=== PATIENT | male | born 1955 | race African-American/Black ===

== ENCOUNTER 2020-06-22 09:07 | Inpatient (IN) | payer MEDICARE, OTHER ==
--- NOTE | 2020-06-22 11:49 | BHS.RME ---
Substance Use & Tx History - Substance Use History Alcohol Substance amount: 1 and half pints of vodka Frequency of use: Daily Substance route: Oral Date of Last Use: 06/22/20 - Last Treatment Date of last treatment: in 2013 [facility] Where was last treatment: Detox Physical/Psych/Mental Status - Behavior Eye Contact: Normal - Cooperativeness Cooperativeness: Cooperative - Thinking Thought Processes: Logical Thought content: Future oriented - Physical Health Problems Is patient presently having any pain?: No Does patient presently have any injuries (include location): No Does patient currently have a fever: No CIWA Nausea/Vomitin Muscle Tremors: 3 Anxiety: 3 Agitation: 3 Paroxysmal Sweats: 1-Minimal Palms Moist Orientation: 0-Oriented Tacttile Disturbances: 1-Very Mild Itch/Numbness Auditory Disturbances: 0-None Visual Disturbances: 0-None Headache: 2-Mild CIWA-Ar Total Score: 16
--- NOTE | 2020-06-22 12:07 | HP ---
CIWA Score Nausea/Vomitin Muscle Tremors: 3 Anxiety: 3 Agitation: 3 Paroxysmal Sweats: 1-Minimal Palms Moist Orientation: 0-Oriented Tacttile Disturbances: 1-Very Mild Itch/Numbness Auditory Disturbances: 0-None Visual Disturbances: 0-None Headache: 2-Mild CIWA-Ar Total Score: 16 - Admission Criteria OASAS Guidelines: Admission for Medically Managed Detox: Requires at least one of the followin. CIWA greater than 12 2. Seizures within the past 24 hours 3. Delirium tremens within the past 24 hours 4. Hallucinations within the past 24 hours 5. Acute intervention needed for co occurring medical disorder 6. Acute intervention needed for co occurring psychiatric disorder 7. Severe withdrawal that cannot be handled at a lower level of care (continued vomiting, continued diarrhea, abnormal vital signs) requiring intravenous medication and/or fluids 8. Admitting History and Physical - Admission Chief Complaint: i need hlep to stop drinking alcohol History of Present Illness: this 65 years old male with alcohol dependence,seeking detox ,first time to this facility last detox in 2013 [facility] living with friends retied,no legal issue nicotine dependence 1pack/day htn,dm on diet control longest sobriety 1 year may go to rehab after detox right inguinoscrotal hernia for 7 years last seen in [place] History Source: Patient Limitations to Obtaining History: No Limitations - Past Medical History Cardiovascular: Yes: HTN Endocrine: Yes: Diabetes Mellitus - Past Surgical History Past Surgical History: Yes: None - Smoking History Smoking history: Current every day smoker Have you smoked in the past 12 months: Yes Aproximately how many cigarettes per day: 20 - Alcohol/Substance Use Hx Alcohol Use: No Date of Last Use: 06/22/20 - Social History Usual Living Arrangement: Yes: Other (with friend) Do you think of yourself as: Straight/Heterosexual Occupation: retired History of Recent Travel: No Other Social History: retired,nicotine dependence,denied legal issue Admission ROS BHS - HPI Chief Complaint: i need help to stop drinking alcohol Allergies/Adverse Reactions: Allergies Allergy/AdvReac Type Severity Reaction Status Date / Time No Known Allergies Allergy Verified 06/22/20 12:32 History of Present Illness: this 65 years old male with alcohol dependence seeking detox,withdrawal symptom,first time to this facility had seizure last 2013,denied syncope last detox [facility] in 2013 hypertension ,type 2 dm on diet control right inguino scrotal hernia for 7 years longest sobriety 1 year 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 patient also on suboxone8 mgs/2 mgs film tid i stop showed last filled on 06/20/2020 got 90 films for 30 days - Ebola screening Have you traveled outside of the country in the last 21 days: No Have you had contact with anyone from an Ebola affected area: No Have you been sick,other than usual withdrawal symptoms: No Do you have a fever: No - Review of Systems Constitutional: Malaise, Night Sweats, Changes in sleep EENT: reports: Nose Congestion Respiratory: reports: No Symptoms reported Cardiac: reports: No Symptoms Reported GI: reports: Nausea, Poor Appetite, Vomiting, Abdominal cramping : reports: No Symptoms Reported Musculoskeletal: reports: Back Pain, Joint Pain, Muscle Pain Integumentary: reports: Dryness Neuro: reports: Headache, Tremors Endocrine: reports: No Symptoms Reported Hematology: reports: No Symptoms Reported Psychiatric: reports: No Sypmtoms Reported, Judgement Intact, Mood/Affect Appropiate, Orientated x3, Agitated Other Systems: Reviewed and Negative Patient History - Patient Medical History Hx Anemia: No Hx Asthma: No Hx Chronic Obstructive Pulmonary Disease (COPD): No Hx Cancer: No Hx Cardiac Disorders: No Hx Congestive Heart Failure: No Hx Hypertension: Yes (no med diet control) Hx Hypercholesterolemia: No Hx Pacemaker: No HX Cerebrovascular Accident: No Hx Seizures: No Hx Dementia: No Hx Diabetes: Yes (no med diet control) Hx Gastrointestinal Disorders: No Hx Liver Disease: No Hx Genitourinary Disorders: No Hx Sexually Transmitted Disorders: No Hx Renal Disease (ESRD): No Hx Thyroid Disease: No Hx Human Immunodeficiency Virus (HIV): No (last 2018) Hx Hepatitis C: No Hx Depression: No Hx Suicide Attempt: No Hx Bipolar Disorder: No Hx Schizophrenia: No Other Medical History: right inguino scrotal hernia,no suicidal,no homicidal - Patient Surgical History Past Surgical History: No - PPD History Previous Implant?: Yes Documented Results: Negative w/o proof Implanted On Prior [facility] Admission?: No PPD to be Administered?: Yes - Smoking Cessation Smoking history: Current every day smoker Have you smoked in the past 12 months: Yes Aproximately how many cigarettes per day: 20 Cigars Per Day: 0 Hx Chewing Tobacco Use: No Initiated information on smoking cessation: Yes 'Breaking Loose' booklet given: 06/22/20 - Substance & Tx. History Hx Alcohol Use: Yes Hx Substance Use: No Substance Use Type: Alcohol Hx Substance Use Treatment: Yes (2013 [facility]) - Substances abused Alcohol Substance route: Oral Frequency: Daily Amount used: 1 and half pints of vodka Age of first use: 54 Date of last use: 06/22/20 Admission Physical Exam [facility] - Vital Signs Vital Signs: bp 144/82,p76,r18,t97.2,maurice 0.057,pulse ox 100% - Physical General Appearance: Yes: Moderate Distress, Tremorous, Irritable, Sweating, Anxious HEENTM: Yes: Normal ENT Inspection, SYDNI, Pharynx Normal Respiratory: Yes: Within Normal Limits, Lungs Clear, Normal Breath Sounds Neck: Yes: Within Normal Limits, Supple, Trachea in good position Breast: Yes: Within Normal Limits Cardiology: Yes: Within Normal Limits, Regular Rhythm, Regular Rate, S1, S2 Abdominal: Yes: Within Normal Limits, Normal Bowel Sounds, Non Tender, Flat, Soft, Other Genitourinary: Yes: Within Normal Limits Back: Yes: Muscle Spasm Musculoskeletal: Yes: Back pain, Muscle Pain Extremities: Yes: Tremors Neurological: Yes: center director II-XII NML intact, Fully Oriented, Alert, Motor Strength 5/5 Lymphatic: Yes: Within Normal Limits - Diagnostic (1) Alcohol dependence with uncomplicated withdrawal Current Visit: Yes Status: Acute (2) Seizure Current Visit: Yes Status: Acute (3) Right inguinal hernia Current Visit: Yes Status: Acute (4) Nicotine dependence Current Visit: Yes Status: Acute (5) Encounter for monitoring Suboxone maintenance therapy Current Visit: Yes Status: Acute Cleared for Admission [facility] - Detox or Rehab [facility] Level of Care: Medically Managed Detox Regimen/Protocol: Librium Inpatient Rehab Admission - Rehab Decision to Admit Inpatient rehab admission?: No
[2020-06-22] MEDS ORDERED: NICOTINE POLACRILEX 2 MG GUM BUC PRN (12:57)
[2020-06-22] MEDS ORDERED: BISMUTH SUBSALICYLATE 524 MG/30 ML UD PO PRN (12:57)
[2020-06-22] MEDS ORDERED: MAG HYDROX/AL HYDROX/SIMETH 30 ML UNIT-DOSE CUP PO PRN (12:57)
[2020-06-22] MEDS ORDERED: chlordiazePOXIDE HCL 25 MG CAPSULE PO PRN (12:57)
[2020-06-22] MEDS ORDERED: ACETAMINOPHEN 325 MG TABLET (FP) PO PRN ×2 (12:57)
[2020-06-22] MEDS ORDERED: MAGNESIUM CITRATE 300 ML BOTTLE PO PRN (12:57)
[2020-06-22] MEDS ORDERED: MENTHOL/PHENOL 1 EACH UD MM PRN (12:57)
[2020-06-22] MEDS ORDERED: MAGNESIUM HYDROX 2400MG/30ML ORAL SUSPENSION 30 ML CUP PO PRN (12:57)
[2020-06-22] MEDS ORDERED: ONDANSETRON *ODT* 4 MG TABLET SL PRN (12:57)
[2020-06-22 13:14] VITALS: BMI 24.8
[2020-06-22] MEDS: NICOTINE 21 MG/24 HOURS TOPICAL PATCH TD SCH (14:50)
[2020-06-22] MEDS: hydrOXYzine PAMOATE 25 MG CAPSULE (FP) PO SCH ×3 (14:50→23:03)
[2020-06-22] MEDS: BUPRENORPHINE/NALOXONE 8 MG/2 MG FILM PACKET SL SCH ×2 (14:50→23:02)
[2020-06-22] MEDS: chlordiazePOXIDE HCL 25 MG CAPSULE PO SCH ×2 (18:34→23:02)
[2020-06-22] MEDS: THIAMINE HCL 100 MG TABLET (FP) PO SCH (23:02)
[2020-06-22] MEDS: MELATONIN 5 MG TABLETS PO SCH (23:03)
[2020-06-23] MEDS: BUPRENORPHINE/NALOXONE 8 MG/2 MG FILM PACKET SL SCH ×3 (05:27→22:47)
[2020-06-23] MEDS: chlordiazePOXIDE HCL 25 MG CAPSULE PO SCH ×4 (05:27→22:47)
[2020-06-23] MEDS: hydrOXYzine PAMOATE 25 MG CAPSULE (FP) PO SCH ×5 (05:28→22:47)
[2020-06-23] MEDS: sitaGLIPtin PHOSPHATE 50 MG TABLET PO SCH ×2 (06:41→08:53)
[2020-06-23] MEDS: ASPIRIN 81 MG CHEWABLE TABLETS PO SCH (10:33)
[2020-06-23] MEDS: TAMSULOSIN HCL 0.4 MG CAP PO SCH (10:33)
[2020-06-23] MEDS: PRENATAL VITAMINS W/ FOLIC ACID TABLET (FP) PO SCH (10:34)
[2020-06-23] MEDS: LOSARTAN POTASSIUM 25 MG TABLET PO SCH (10:34)
[2020-06-23] MEDS: NICOTINE 21 MG/24 HOURS TOPICAL PATCH TD SCH (10:34)
--- NOTE | 2020-06-23 10:50 | PN ---
S CIWA - CIWA Score Nausea/Vomitin-Mild Nausea/No Vomiting Muscle Tremors: 4-Moderate,w/Arms Extend Anxiety: 3 Agitation: 1-Slight > Activity Paroxysmal Sweats: No Perspiration Orientation: 0-Oriented Tacttile Disturbances: 0-None Auditory Disturbances: 0-None Visual Disturbances: 1-Very Mild Sensitivity Headache: 2-Mild CIWA-Ar Total Score: 12 BHS Progress Note (SOAP) Subjective: 65 years old male was admitted on 06/22/20 for alcohol withdrawal sx management treating with librium detox regiment feels tired ate breakfast in room prefers to resting today limited conversation with staff Objective: 06/23/20 10:49 Vital Signs - 24 hr 06/22/20 06/22/20 06/22/20 13:07 14:23 16:03 Temperature 97.2 F L 96.9 F L Pulse Rate 76 82 76 Respiratory 18 18 18 Rate Blood Pressure 144/82 174/82 H 171/92 H O2 Sat by Pulse 100 Oximetry (%) 06/22/20 06/22/20 06/23/20 16:55 20:32 06:14 Temperature 97.3 F L 97.1 F L 97.8 F Pulse Rate 69 69 60 Respiratory 18 17 18 Rate Blood Pressure 168/94 132/86 145/88 O2 Sat by Pulse 95 100 Oximetry (%) 06/23/20 09:06 Temperature 97.7 F Pulse Rate 80 Respiratory 18 Rate Blood Pressure 98/67 O2 Sat by Pulse Oximetry (%) Laboratory Tests 06/22/20 06/23/20 13:10 05:29 POC Glucometer 102 COVID-19 ([facility]) Not detected 06/23/20 10:50 lab pending Assessment: 06/23/20 10:50 alcohol withdrawal Plan: librium regiment
[2020-06-23 10:59] LABS: HEMOGLOBIN 12.3 GM/dL (11.7-16.9); MCHC 32.3 g/dl (32.0-35.9); MEAN CELL VOLUME 105.2 fl (80-96); MEAN PLT VOLUME 10.9 fl (7.5-11.1); PLATELET COUNT 80 K/MM3 (134-434); RBC 3.61 M/mm3 (4.00-5.60); RDW 15.3 % (11.9-15.9); WHITE BLOOD COUNT 3.6 K/mm3 (4.0-10.0)
[2020-06-23 11:16] LABS: POTASSIUM 4.2 mmol/L (3.5-5.1)
[2020-06-23 11:25] LABS: ALBUMIN 2.9 g/dl (3.4-5.0); BILIRUBIN,TOTAL 1.4 mg/dL (0.2-1); BLOOD UREA NITROGEN 13.5 mg/dL (7-18); CALCIUM 8.7 mg/dL (8.5-10.1); TOT PROT 6.2 g/dl (6.4-8.2)
--- NOTE | 2020-06-23 11:44 | EKG ---
Test Reason : Blood Pressure : / mmHG Vent. Rate : 087 BPM Atrial Rate : 087 BPM P-R Int : 200 ms QRS Dur : 096 ms QT Int : 372 ms P-R-T Axes : 049 047 044 degrees QTc Int : 447 ms NORMAL SINUS RHYTHM MINIMAL VOLTAGE CRITERIA FOR LVH, MAY BE NORMAL VARIANT BORDERLINE ECG NO PREVIOUS ECGS AVAILABLE Confirmed by CHRISSIE MARTINEZ MD ([id number]) on 06/23/2020 11:43:17 AM Referred By: Confirmed By:CHRISSIE MARTINEZ MD
[2020-06-23] MEDS: IBUPROFEN 400 MG TABLET (FP) PO PRN (18:30)
[2020-06-23] MEDS: MELATONIN 5 MG TABLETS PO SCH (22:47)
[2020-06-23] MEDS: THIAMINE HCL 100 MG TABLET (FP) PO SCH (22:47)
[2020-06-24] MEDS: hydrOXYzine PAMOATE 25 MG CAPSULE (FP) PO SCH ×5 (05:43→23:01)
[2020-06-24] MEDS: chlordiazePOXIDE HCL 25 MG CAPSULE PO SCH ×2 (05:43→10:31)
[2020-06-24] MEDS: BUPRENORPHINE/NALOXONE 8 MG/2 MG FILM PACKET SL SCH ×3 (05:43→23:01)
[2020-06-24] MEDS: sitaGLIPtin PHOSPHATE 50 MG TABLET PO SCH (07:57)
[2020-06-24] MEDS: ASPIRIN 81 MG CHEWABLE TABLETS PO SCH (10:30)
[2020-06-24] MEDS: TAMSULOSIN HCL 0.4 MG CAP PO SCH (10:30)
[2020-06-24] MEDS: PRENATAL VITAMINS W/ FOLIC ACID TABLET (FP) PO SCH (10:31)
[2020-06-24] MEDS: LOSARTAN POTASSIUM 25 MG TABLET PO SCH (10:31)
[2020-06-24] MEDS: NICOTINE 21 MG/24 HOURS TOPICAL PATCH TD SCH (10:31)
--- NOTE | 2020-06-24 10:58 | PN ---
[facility] CIWA - CIWA Score Nausea/Vomitin-Mild Nausea/No Vomiting Muscle Tremors: 2 Anxiety: 2 Agitation: 1-Slight > Activity Paroxysmal Sweats: No Perspiration Orientation: 0-Oriented Tacttile Disturbances: 0-None Auditory Disturbances: 0-None Visual Disturbances: 2-Mild Sensitivity Headache: 1-Very Mild CIWA-Ar Total Score: 9 S Progress Note (SOAP) Subjective: 65 years old male was admitted on 06/21/20 for alcohol withdrawal sx management treating with librium detox regiment ambulating with cane slow steady taking suboxone 8-2mg sl tid taking sitagliptin 50mg po daily for none insulin dependent diabetes Objective: 06/24/20 11:10 Vital Signs - 24 hr 06/23/20 06/23/20 06/23/20 12:45 16:36 20:09 Temperature 97.8 F 96.9 F L 97.1 F L Pulse Rate 82 85 90 Respiratory 18 18 18 Rate Blood Pressure 90/60 105/66 110/72 O2 Sat by Pulse 97 99 Oximetry (%) 06/24/20 06/24/20 05:58 08:32 Temperature 97.1 F L 97.1 F L Pulse Rate 90 84 Respiratory 18 16 Rate Blood Pressure 113/63 110/65 O2 Sat by Pulse 100 Oximetry (%) Laboratory Tests 06/22/20 06/23/20 06/23/20 13:10 05:29 07:40 WBC RBC Hgb Hct MCV MCH MCHC RDW Plt Count MPV Sodium Potassium Chloride Carbon Dioxide Anion Gap BUN Creatinine Est GFR (CKD-EPI)AfAm Est GFR (CKD-EPI)NonAf POC Glucometer 102 Random Glucose Calcium Total Bilirubin AST ALT Alkaline Phosphatase Total Protein Albumin Syphilis Serology Non-reactive COVID-19 ([facility]) Not detected HIV Ag/Ab Combo Qual 06/23/20 06/23/20 06/23/20 07:40 07:40 08:00 WBC 3.6 L RBC 3.61 L Hgb 12.3 Hct 38.0 MCV 105.2 H MCH 34.0 H MCHC 32.3 RDW 15.3 Plt Count 80 L MPV 10.9 Sodium 137 Potassium 4.2 Chloride 101 Carbon Dioxide 34 H Anion Gap 3 L BUN 13.5 Creatinine 1.0 Est GFR (CKD-EPI)AfAm 90.50 Est GFR (CKD-EPI)NonAf 78.08 POC Glucometer Random Glucose 103 Calcium 8.7 Total Bilirubin 1.4 H AST 130 H ALT 104 H Alkaline Phosphatase 146 H Total Protein 6.2 L Albumin 2.9 L Syphilis Serology COVID-19 ([facility]) HIV Ag/Ab Combo Qual Negative 06/24/20 05:43 WBC RBC Hgb Hct MCV MCH MCHC RDW Plt Count MPV Sodium Potassium Chloride Carbon Dioxide Anion Gap BUN Creatinine Est GFR (CKD-EPI)AfAm Est GFR (CKD-EPI)NonAf POC Glucometer 92 Random Glucose Calcium Total Bilirubin AST ALT Alkaline Phosphatase Total Protein Albumin Syphilis Serology COVID-19 ([facility]) HIV Ag/Ab Combo Qual 06/24/20 11:12 ast elevation discontinue tylenal discontinue librium begin ativan detox regiment 06/24/20 11:16 repeat ast 06/26/20 Assessment: 06/24/20 11:16 alcohol withdrawal Plan: ativan regiment
[2020-06-24 11:13] LABS: EPI CELLS 5 /uL (0-25.1); HYALINE CASTS 7 /uL (0-3.1); URINE APPEARANCE CLOUDY; URINE BACTERIA >9,000 /uL (0-1359); URINE BILIRUBIN 1+ (NEGATIVE); URINE COLOR DK YELLOW; URINE GLUCOSE (UA) NEGATIVE (NEGATIVE); URINE KETONE TRACE (NEGATIVE); URINE LEUK ESTERASE 2+ (NEGATIVE); URINE NITRITE POSITIVE (NEGATIVE); URINE PROTEIN TRACE (NEGATIVE); URINE RBC 20 /uL (0-23.9); URINE WBC 248 /uL (0-25.8)
[2020-06-24] MEDS ORDERED: LORazepam 1 MG TABLET PO PRN (11:13)
[2020-06-24 11:50] LABS: URINE CRYSTALS PRESENT /hpf
[2020-06-24] MEDS: LORazepam 2 MG TABLET PO SCH ×2 (18:14→23:02)
[2020-06-24] MEDS: MELATONIN 5 MG TABLETS PO SCH (23:01)
[2020-06-24] MEDS: THIAMINE HCL 100 MG TABLET (FP) PO SCH (23:01)
[2020-06-25] MEDS ORDERED: chlordiazePOXIDE HCL 10 MG CAPSULE PO PRN
[2020-06-25] MEDS ORDERED: chlordiazePOXIDE HCL 10 MG CAPSULE PO SCH (05:00)
[2020-06-25] MEDS: hydrOXYzine PAMOATE 25 MG CAPSULE (FP) PO SCH ×2 (07:46→10:23)
[2020-06-25] MEDS: BUPRENORPHINE/NALOXONE 8 MG/2 MG FILM PACKET SL SCH ×3 (07:46→22:35)
[2020-06-25] MEDS: LORazepam 1 MG TABLET PO SCH ×4 (07:46→22:35)
[2020-06-25] MEDS: sitaGLIPtin PHOSPHATE 50 MG TABLET PO SCH (07:49)
[2020-06-25] MEDS: PRENATAL VITAMINS W/ FOLIC ACID TABLET (FP) PO SCH (10:23)
[2020-06-25] MEDS: ASPIRIN 81 MG CHEWABLE TABLETS PO SCH (10:23)
[2020-06-25] MEDS: NICOTINE 21 MG/24 HOURS TOPICAL PATCH TD SCH (10:24)
[2020-06-25] MEDS: LOSARTAN POTASSIUM 25 MG TABLET PO SCH (10:24)
[2020-06-25] MEDS: TAMSULOSIN HCL 0.4 MG CAP PO SCH (10:24)
--- NOTE | 2020-06-25 11:50 | PN ---
S CIWA - CIWA Score Nausea/Vomitin-No Nausea/No Vomiting Muscle Tremors: 1-None Visible, but [place] Anxiety: 1-Mildly Anxious Agitation: 0-Normal Activity Paroxysmal Sweats: No Perspiration Orientation: 0-Oriented Tacttile Disturbances: 1-Very Mild Itch/Numbness Auditory Disturbances: 0-None Visual Disturbances: 0-None Headache: 0-None Present CIWA-Ar Total Score: 3 BHS Progress Note (SOAP) Subjective: 65 years old male was admitted on 06/21/20 for alcohol withdrawal sx management treating with ativan detox regiment mr singh was taking about his who 6 years ago and life has be hard without his partner for "many years" mr singh denies suicidal ideation no homocidal ideation encourage ventilate feelings and concerns Objective: 06/25/20 11:48 Vital Signs - 24 hr 06/24/20 06/24/20 06/24/20 12:31 16:34 21:13 Temperature 97.1 F L 96.9 F L 97.3 F L Pulse Rate 96 H 88 67 Respiratory 18 16 18 Rate Blood Pressure 98/61 101/67 148/83 O2 Sat by Pulse 98 98 95 Oximetry (%) 06/25/20 06/25/20 06:28 08:36 Temperature 97.0 F L 97.7 F Pulse Rate 83 108 H Respiratory 18 18 Rate Blood Pressure 109/54 L 98/67 O2 Sat by Pulse 99 Oximetry (%) Laboratory Tests 06/22/20 06/23/20 06/23/20 13:10 05:29 07:40 WBC RBC Hgb Hct MCV MCH MCHC RDW Plt Count MPV Sodium Potassium Chloride Carbon Dioxide Anion Gap BUN Creatinine Est GFR (CKD-EPI)AfAm Est GFR (CKD-EPI)NonAf POC Glucometer 102 Random Glucose Calcium Total Bilirubin AST ALT Alkaline Phosphatase Total Protein Albumin Urine Color Urine Appearance Urine pH Ur Specific [place] Urine Protein Urine Glucose (UA) Urine Ketones Urine Blood Urine Nitrite Urine Bilirubin Urine Urobilinogen Ur Leukocyte Esterase Urine WBC (Auto) Urine RBC (Auto) Urine Casts (Auto) U Epithel Cells (Auto) Urine Crystals (Auto) Urine Bacteria (Auto) Syphilis Serology Non-reactive COVID-19 ([facility]) Not detected HIV Ag/Ab Combo Qual 06/23/20 06/23/20 06/23/20 07:40 07:40 08:00 WBC 3.6 L RBC 3.61 L Hgb 12.3 Hct 38.0 MCV 105.2 H MCH 34.0 H MCHC 32.3 RDW 15.3 Plt Count 80 L MPV 10.9 Sodium 137 Potassium 4.2 Chloride 101 Carbon Dioxide 34 H Anion Gap 3 L BUN 13.5 Creatinine 1.0 Est GFR (CKD-EPI)AfAm 90.50 Est GFR (CKD-EPI)NonAf 78.08 POC Glucometer Random Glucose 103 Calcium 8.7 Total Bilirubin 1.4 H AST 130 H ALT 104 H Alkaline Phosphatase 146 H Total Protein 6.2 L Albumin 2.9 L Urine Color Urine Appearance Urine pH Ur Specific [place] Urine Protein Urine Glucose (UA) Urine Ketones Urine Blood Urine Nitrite Urine Bilirubin Urine Urobilinogen Ur Leukocyte Esterase Urine WBC (Auto) Urine RBC (Auto) Urine Casts (Auto) U Epithel Cells (Auto) Urine Crystals (Auto) Urine Bacteria (Auto) Syphilis Serology COVID-19 ([facility]) HIV Ag/Ab Combo Qual Negative 06/24/20 06/24/20 06/24/20 05:43 08:00 16:39 WBC RBC Hgb Hct MCV MCH MCHC RDW Plt Count MPV Sodium Potassium Chloride Carbon Dioxide Anion Gap BUN Creatinine Est GFR (CKD-EPI)AfAm Est GFR (CKD-EPI)NonAf POC Glucometer 92 133 Random Glucose Calcium Total Bilirubin AST ALT Alkaline Phosphatase Total Protein Albumin Urine Color Dk yellow Urine Appearance Cloudy Urine pH 5.0 Ur Specific [place] 1.029 Urine Protein Trace Urine Glucose (UA) Negative Urine Ketones Trace H Urine Blood 2+ H Urine Nitrite Positive H Urine Bilirubin 1+ H Urine Urobilinogen 1.0 Ur Leukocyte Esterase 2+ H Urine WBC (Auto) 248 Urine RBC (Auto) 20 Urine Casts (Auto) 7 U Epithel Cells (Auto) 5 Urine Crystals (Auto) Present Urine Bacteria (Auto) >9,000 Syphilis Serology COVID-19 ([facility]) HIV Ag/Ab Combo Qual 06/25/20 07:48 WBC RBC Hgb Hct MCV MCH MCHC RDW Plt Count MPV Sodium Potassium Chloride Carbon Dioxide Anion Gap BUN Creatinine Est GFR (CKD-EPI)AfAm Est GFR (CKD-EPI)NonAf POC Glucometer 137 Random Glucose Calcium Total Bilirubin AST ALT Alkaline Phosphatase Total Protein Albumin Urine Color Urine Appearance Urine pH Ur Specific [place] Urine Protein Urine Glucose (UA) Urine Ketones Urine Blood Urine Nitrite Urine Bilirubin Urine Urobilinogen Ur Leukocyte Esterase Urine WBC (Auto) Urine RBC (Auto) Urine Casts (Auto) U Epithel Cells (Auto) Urine Crystals (Auto) Urine Bacteria (Auto) Syphilis Serology COVID-19 ([facility]) HIV Ag/Ab Combo Qual low bp set parameter for losartan administer ast elevation continue ativan regiment uti begin bactrim ds bid x 5 days Assessment: 06/25/20 11:54 alcohol withdrawal uncomplicated uti Plan: ativan regiment bactrim ds bid x 5 days
[2020-06-25] MEDS ORDERED: SULFAMETHOXAZOLE/TRIMETHOPRIM 800MG/160MG D.S. TABLET PO SCH (12:00)
[2020-06-25] MEDS: AMOXICILLIN 500 MG CAPSULE (FP) PO SCH ×2 (15:37→22:35)
[2020-06-25] MEDS: METHOCARBAMOL 500 MG TABLET PO PRN (17:46)
[2020-06-25] MEDS: THIAMINE HCL 100 MG TABLET (FP) PO SCH (22:35)
[2020-06-25] MEDS: MELATONIN 5 MG TABLETS PO SCH (22:35)
[2020-06-26] MEDS ORDERED: LORazepam 0.5 MG TABLET PO PRN
[2020-06-26] MEDS ORDERED: chlordiazePOXIDE HCL 10 MG CAPSULE PO SCH (05:00)
[2020-06-26] MEDS: AMOXICILLIN 500 MG CAPSULE (FP) PO SCH ×3 (05:33→23:01)
[2020-06-26] MEDS: LORazepam 0.5 MG TABLET PO SCH ×4 (05:33→23:02)
[2020-06-26] MEDS: BUPRENORPHINE/NALOXONE 8 MG/2 MG FILM PACKET SL SCH ×3 (05:33→23:01)
[2020-06-26] MEDS: IBUPROFEN 400 MG TABLET (FP) PO PRN (05:35)
[2020-06-26] MEDS: sitaGLIPtin PHOSPHATE 50 MG TABLET PO SCH (07:08)
--- NOTE | 2020-06-26 10:00 | PN ---
S CIWA - CIWA Score Nausea/Vomitin-Mild Nausea/No Vomiting Muscle Tremors: 1-None Visible, but [place] Anxiety: 1-Mildly Anxious Agitation: 1-Slight > Activity Paroxysmal Sweats: No Perspiration Orientation: 0-Oriented Tacttile Disturbances: 0-None Auditory Disturbances: 0-None Visual Disturbances: 0-None Headache: 1-Very Mild CIWA-Ar Total Score: 5 BHS Progress Note (SOAP) Subjective: alert,anxious,interrupted sleep,aching pain Objective: 06/26/20 15:52 Vital Signs Temperature 97.3 F L 06/26/20 12:51 Pulse Rate 82 06/26/20 12:51 Respiratory Rate 18 06/26/20 12:51 Blood Pressure 102/64 06/26/20 12:51 O2 Sat by Pulse Oximetry (%) 96 06/26/20 12:51 Abnormal Lab Results 06/26/20 08:00 AST 135 H Assessment: 06/26/20 15:52 withdrawal symptom Plan: continue detox librium regimen,discharge in am,follow up with after care program as arrangemnt at out patient program in clinic at [facility] Dr Mckinney
[2020-06-26] MEDS: TAMSULOSIN HCL 0.4 MG CAP PO SCH (10:05)
[2020-06-26] MEDS: PRENATAL VITAMINS W/ FOLIC ACID TABLET (FP) PO SCH (10:05)
[2020-06-26] MEDS: ASPIRIN 81 MG CHEWABLE TABLETS PO SCH (10:06)
[2020-06-26] MEDS: METHOCARBAMOL 500 MG TABLET PO PRN (10:07)
[2020-06-26] MEDS: NICOTINE 21 MG/24 HOURS TOPICAL PATCH TD SCH (10:09)
[2020-06-26] MEDS: LOSARTAN POTASSIUM 25 MG TABLET PO SCH (10:10)
[2020-06-26] MEDS: METHYL SALICYLATE/MENTHOL OINT 30 GM TUBE TP SCH (23:01)
[2020-06-26] MEDS: THIAMINE HCL 100 MG TABLET (FP) PO SCH (23:02)
[2020-06-26] MEDS: MELATONIN 5 MG TABLETS PO SCH (23:02)
[2020-06-27] MEDS ORDERED: LORazepam 0.5 MG TABLET PO ONE (05:00)
[2020-06-27] MEDS ORDERED: chlordiazePOXIDE HCL 10 MG CAPSULE PO ONE (05:00)
[2020-06-27] MEDS: AMOXICILLIN 500 MG CAPSULE (FP) PO SCH (06:34)
[2020-06-27] MEDS: BUPRENORPHINE/NALOXONE 8 MG/2 MG FILM PACKET SL SCH (06:34)
[2020-06-27 09:30] VITALS: BP 131/75; PULSE 102; TEMP 98
--- NOTE | 2020-06-27 09:39 | PN ---
[facility] CIWA - CIWA Score Nausea/Vomitin-No Nausea/No Vomiting Muscle Tremors: None Anxiety: 1-Mildly Anxious Agitation: 0-Normal Activity Paroxysmal Sweats: No Perspiration Orientation: 0-Oriented Tacttile Disturbances: 0-None Auditory Disturbances: 0-None Visual Disturbances: 0-None Headache: 0-None Present CIWA-Ar Total Score: 1 S Progress Note (SOAP) Subjective: alert,no complaint Objective: 06/27/20 15:32 Vital Signs Temperature 98.0 F 06/27/20 08:47 Pulse Rate 102 H 06/27/20 08:47 Respiratory Rate 18 06/27/20 08:47 Blood Pressure 131/75 06/27/20 08:47 O2 Sat by Pulse Oximetry (%) 99 06/27/20 07:32 Assessment: 06/27/20 15:32 no withdrawal symptom Plan: stable for discharge today,declined rehab,follow up with out patient program at [facility] Dr Mckinney
--- NOTE | 2020-06-27 09:39 | DS ---
[facility] Detox Discharge Summary Admission Date: 06/22/20 Discharge Date: 06/27/20 - History Present History: Alcohol Dependence Additional Comments: alert,oriented x3 ambulation on the unit with cane lung clear on auscultation bilaterally abdomen soft,no distension,right inguino scrotal hernia,no pain detox completed,no withdrawal symptom stable for discharge declined rehab has own safe place to stay he will go to see his medical Provider at [facility] for follow up care left the unit in stable condition total time spending 35 minutes Pertinent Past History: right inguinal hernia encounter suboxone maitenance ambulation with cane bph uti - Physical Exam Results Vital Signs: Vital Signs Temperature 98.0 F 06/27/20 08:47 Pulse Rate 102 H 06/27/20 08:47 Respiratory Rate 18 06/27/20 08:47 Blood Pressure 131/75 06/27/20 08:47 O2 Sat by Pulse Oximetry (%) 99 06/27/20 07:32 Pertinent Admission Physical Exam Findings: withdrawal signs and symptom Laboratory Last Values WBC 3.6 K/mm3 (4.0-10.0) L 06/23/20 07:40 RBC 3.61 M/mm3 (4.00-5.60) L 06/23/20 07:40 Hgb 12.3 GM/dL (11.7-16.9) 06/23/20 07:40 Hct 38.0 % (35.4-49) 06/23/20 07:40 MCV 105.2 fl (80-96) H 06/23/20 07:40 MCH 34.0 pg (25.7-33.7) H 06/23/20 07:40 MCHC 32.3 g/dl (32.0-35.9) 06/23/20 07:40 RDW 15.3 % (11.9-15.9) 06/23/20 07:40 Plt Count 80 K/MM3 (134-434) L 06/23/20 07:40 MPV 10.9 fl (7.5-11.1) 06/23/20 07:40 Sodium 137 mmol/L (136-145) 06/23/20 07:40 Potassium 4.2 mmol/L (3.5-5.1) 06/23/20 07:40 Chloride 101 mmol/L (98-107) 06/23/20 07:40 Carbon Dioxide 34 mmol/L (21-32) H 06/23/20 07:40 Anion Gap 3 MMOL/L (8-16) L 06/23/20 07:40 BUN 13.5 mg/dL (7-18) 06/23/20 07:40 Creatinine 1.0 mg/dL (0.55-1.3) 06/23/20 07:40 Est GFR (CKD-EPI)AfAm 90.50 06/23/20 07:40 Est GFR (CKD-EPI)NonAf 78.08 06/23/20 07:40 POC Glucometer 132 UNITS (80-120) 06/27/20 06:33 Random Glucose 103 mg/dL (74-106) 06/23/20 07:40 Calcium 8.7 mg/dL (8.5-10.1) 06/23/20 07:40 Total Bilirubin 1.4 mg/dL (0.2-1) H 06/23/20 07:40 AST 135 U/L (15-37) H 06/26/20 08:00 ALT 104 U/L (13-61) H 06/23/20 07:40 Alkaline Phosphatase 146 U/L (45-117) H 06/23/20 07:40 Total Protein 6.2 g/dl (6.4-8.2) L 06/23/20 07:40 Albumin 2.9 g/dl (3.4-5.0) L 06/23/20 07:40 Urine Color Dk yellow 06/24/20 08:00 Urine Appearance Cloudy 06/24/20 08:00 Urine pH 5.0 (5.0-8.0) 06/24/20 08:00 Ur Specific [place] 1.029 (1.010-1.035) 06/24/20 08:00 Urine Protein Trace (NEGATIVE) 06/24/20 08:00 Urine Glucose (UA) Negative (NEGATIVE) 06/24/20 08:00 Urine Ketones Trace (NEGATIVE) H 06/24/20 08:00 Urine Blood 2+ (NEGATIVE) H 06/24/20 08:00 Urine Nitrite Positive (NEGATIVE) H 06/24/20 08:00 Urine Bilirubin 1+ (NEGATIVE) H 06/24/20 08:00 Urine Urobilinogen 1.0 mg/dL (0.2-1.0) 06/24/20 08:00 Ur Leukocyte Esterase 2+ (NEGATIVE) H 06/24/20 08:00 Urine WBC (Auto) 248 /uL (0-25.8) 06/24/20 08:00 Urine RBC (Auto) 20 /uL (0-23.9) 06/24/20 08:00 Urine Casts (Auto) 7 /uL (0-3.1) 06/24/20 08:00 U Epithel Cells (Auto) 5 /uL (0-25.1) 06/24/20 08:00 Urine Crystals (Auto) Present /hpf 06/24/20 08:00 Urine Bacteria (Auto) >9,000 /uL (0-1359) 06/24/20 08:00 Syphilis Serology Non-reactive (NONREACTIVE) 06/23/20 07:40 COVID-19 ([facility]) Not detected (Not Detected) 06/22/20 13:10 HIV Ag/Ab Combo Qual Negative (NEGATIVE) 06/23/20 08:00 Vital Signs Temperature 98.0 F 06/27/20 08:47 Pulse Rate 102 H 06/27/20 08:47 Respiratory Rate 18 06/27/20 08:47 Blood Pressure 131/75 06/27/20 08:47 O2 Sat by Pulse Oximetry (%) 99 06/27/20 07:32 - Treatment Hospital Course: Detox Protocol Followed, Detoxed Safely, Responded well, Discharged Condition Good Patient has Accepted a Rehab Referral to: declined - Medication Discharge Medications: Ambulatory Orders Aspirin [ASA -] 81 mg PO DAILY 06/22/20 Buprenorphine/Naloxone [Suboxone 8Mg/2Mg Sl Film -] 1 each SL TID 06/22/20 Losartan Potassium 25 mg PO DAILY 06/22/20 Sitagliptin Phosphate [Januvia -] 50 mg PO DAILY@0700 06/22/20 Tamsulosin HCl [Flomax] 0.4 mg PO DAILY 06/22/20 Amoxicillin - [Amoxicillin 500mg Capsule -] 500 mg PO TID #21 capsule 06/26/20 - Diagnosis (1) Alcohol dependence with uncomplicated withdrawal Status: Acute (2) Seizure Status: Acute (3) Right inguinal hernia Status: Acute (4) Nicotine dependence Status: Acute (5) Encounter for monitoring Suboxone maintenance therapy Status: Acute (6) UTI (urinary tract infection) Status: Acute - AMA Did Patient Leave Against Medical Advice: No
[2020-06-27] MEDS: TAMSULOSIN HCL 0.4 MG CAP PO SCH (10:20)
[2020-06-27] MEDS: ASPIRIN 81 MG CHEWABLE TABLETS PO SCH (10:20)
[2020-06-27] MEDS: LOSARTAN POTASSIUM 25 MG TABLET PO SCH (10:21)
[2020-06-27] MEDS: PRENATAL VITAMINS W/ FOLIC ACID TABLET (FP) PO SCH (10:21)
[2020-06-27] MEDS: NICOTINE 21 MG/24 HOURS TOPICAL PATCH TD SCH (10:22)
[2020-06-27] MEDS: METHYL SALICYLATE/MENTHOL OINT 30 GM TUBE TP SCH (10:25)
== END 2020-06-27 10:25 | disposition home or self-care (01) | DRG 897 ==
LOC: YASAS 09:07 → Y3N 12:53
PROVIDERS: ADMIT Allergy & Immunology; ATTEND Allergy & Immunology
PROC: HZ2ZZZZ Detoxification Services for Substance Abuse Treatment (ICD-10-PCS; principal; 2020-06-22)
DX: F10.230 Alcohol dependence with withdrawal, uncomplicated (principal); N39.0 Urinary tract infection, site not specified; F17.210 Nicotine dependence, cigarettes, uncomplicated; I10 Essential (primary) hypertension; E11.9 Type 2 diabetes mellitus without complications; Z79.84 Long term (current) use of oral hypoglycemic drugs; K40.90 Unilateral inguinal hernia, without obstruction or gangrene, not specified as recurrent; N40.0 Benign prostatic hyperplasia without lower urinary tract symptoms; R74.0 Nonspecific elevation of levels of transaminase and lactic acid dehydrogenase [LDH]; Z51.81 Encounter for therapeutic drug level monitoring; Z99.89 Dependence on other enabling machines and devices; Z86.69 Personal history of other diseases of the nervous system and sense organs
CPT/HCPCS: 36415; 80053; 81003; 82962; 84450; 85027; 86780; 87389; 93005; 93010; U0003